=== PATIENT | male | born 1960 | race African-American/Black ===

== ENCOUNTER 2020-11-10 18:56 | Emergency (ER) | payer OTHER ==
[~2020-11-10] VITALS: Ht 185.4 cm; Wt 79.4 kg
[2020-11-10 20:16] LABS: ABSOLUTE LYMPHOCYTES 1.2 thou/uL (0.8-5.3); ABSOLUTE MONOCYTES 0.3 thou/uL (0.0-1.2); BASOPHILS 0.5 %; HEMATOCRIT 42.2 % (42.0-52.0); HEMOGLOBIN 13.9 gm/dL (14.0-18.0); LYMPHOCYTES 25.5 %; MCH 27.4 pg (26.0-34.0); MCHC 32.9 g/dL (28.0-37.0); MCV 83.4 fL (80.0-100.0); MONOCYTES 7.3 %; MPV 8.2 fl. (7.2-11.1); NUCLEATED RBCS 0 /100WBC; PLATELET COUNT* 139 thou/uL (150-400); POLYS 66.7 %; RBC 5.07 mil/uL (4.50-6.00); RDW-CV 14.2 % (10.5-14.5); WBC 4.5 thou/uL (4.0-11.0)
[2020-11-10 20:25] LABS: CALCIUM 8.1 mg/dL (8.5-10.1); POTASSIUM 4.3 mmol/L (3.5-5.1)
[2020-11-10 20:34] LABS: ALBUMIN 3.4 g/dL (3.4-5.0); MAGNESIUM 1.8 mg/dL (1.8-2.4); TOTAL BILIRUBIN 0.3 mg/dL (<0.1-1.0); TOTAL PROTEIN 7.5 g/dL (6.4-8.2)
[2020-11-10] MEDS ORDERED: PROAIR HFA8.5 GM INH (20:47)
[2020-11-10 20:58] VITALS: BP 131/7
--- NOTE | 2020-11-11 09:40 | EKG ---
[place] [address] ELECTROCARDIOGRAM REPORT Name: ARABELLAGISELLE D Room: [facility]#: [id number] Admission: 11/10/20 Attend Phys: Discharge: 11/10/20 Date of : 64 Date of Service: 11/10/201944 Report #: [id number] THIS REPORT FOR: //name// [facility] ED Test Date: 2020-11-10 Test Time: 19:45:12 Pat Name: GISELLE BELL Department: Room: Gender: Professor Of Business: JACINDA : 1960 Requested By: Linda Fernandez Order Number: [id number] MD: Guy Pepe Measurements Intervals [place] Rate: 71 P: 49 [place]: 157 QRS: 4 QRSD: 88 T: 35 QT: 392 QTc: 426 Interpretive Statements Sinus rhythm No previous ECG available for comparison Electronically Signed On 11-11-2020 9:40:31 CDT by Guy Pepe [email or web address] <ELECTRONICALLY SIGNED> By: Guy Pepe MD, [facility] 11/11/20939 44 44 Guy Pepe MD, FACC /EPI
== END 2020-11-10 20:59 | disposition home or self-care (01) ==
LOC: M.ERS 18:56
PROVIDERS: Emergency Medicine
DX: U07.1 COVID-19 (principal); Z98.890 Other specified postprocedural states